=== PATIENT | female | born 1955 | race Caucasian/White ===

== ENCOUNTER → 2016-11-05 | Outpatient (CLI) | payer MEDICAID ==
[2016-11-05 11:56] LABS: PROTHROMBIN TIME 25.3 SEC (11.4-15.4)
== END ==
LOC: OD 10:22
PROVIDERS: ATTEND Nurse Practitioner
DX: Z79.01 Long term (current) use of anticoagulants (principal)
CPT/HCPCS: 36415; 85610

== ENCOUNTER → 2016-11-26 | Outpatient (CLI) | payer MEDICAID ==
[2016-11-26 10:51] LABS: PROTHROMBIN TIME 25.2 SEC (11.4-15.4)
== END ==
LOC: OD 09:39
PROVIDERS: ATTEND Nurse Practitioner
DX: Z79.01 Long term (current) use of anticoagulants (principal)
CPT/HCPCS: 36415; 85610

== ENCOUNTER → 2016-12-24 | Outpatient (CLI) | payer MEDICAID ==
[2016-12-24 10:20] LABS: PROTHROMBIN TIME 27.4 SEC (11.4-15.4)
== END ==
LOC: OD 09:16
PROVIDERS: ATTEND Nurse Practitioner
DX: Z51.81 Encounter for therapeutic drug level monitoring (principal); Z79.01 Long term (current) use of anticoagulants
CPT/HCPCS: 36415; 85610

== ENCOUNTER → 2017-02-24 | Outpatient (CLI) | payer MEDICAID | LOC: WI 09:43 | PROVIDERS: ATTEND Nurse Practitioner | DX: Z12.31 Encounter for screening mammogram for malignant neoplasm of breast (principal) | CPT/HCPCS: 77067; G0202 ==

== ENCOUNTER → 2017-03-03 | Outpatient (CLI) | payer MEDICAID ==
[2017-03-03 11:19] LABS: PROTHROMBIN TIME 24.1 SEC (11.4-15.4)
== END ==
LOC: OD 10:05
PROVIDERS: ATTEND Nurse Practitioner
DX: Z79.01 Long term (current) use of anticoagulants (principal)
CPT/HCPCS: 36415; 85610

== ENCOUNTER → 2017-04-24 | Outpatient (CLI) | payer MEDICAID ==
[2017-04-24 11:21] LABS: PROTHROMBIN TIME 22.3 SEC (11.4-15.4)
== END ==
LOC: OD 09:51
PROVIDERS: ATTEND Nurse Practitioner
DX: Z79.01 Long term (current) use of anticoagulants (principal)
CPT/HCPCS: 36415; 85610

== ENCOUNTER → 2017-05-07 | Outpatient (CLI) | payer MEDICAID | LOC: OD 12:16 | PROVIDERS: ATTEND Nurse Practitioner | DX: Z79.01 Long term (current) use of anticoagulants (principal) | CPT/HCPCS: 36415; 85610 ==

== ENCOUNTER → 2017-05-26 | Outpatient (CLI) | payer MEDICAID ==
[2017-05-26 13:06] LABS: PROTHROMBIN TIME 21.3 SEC (11.4-15.4)
== END ==
LOC: OD 12:05
PROVIDERS: ATTEND Nurse Practitioner
DX: Z79.01 Long term (current) use of anticoagulants (principal)
CPT/HCPCS: 36415; 85610

== ENCOUNTER → 2017-06-08 | Outpatient (CLI) | payer MEDICAID ==
[2017-06-08 15:12] LABS: PROTHROMBIN TIME 30.6 SEC (11.4-15.4)
== END ==
LOC: OD 13:43
PROVIDERS: ATTEND Nurse Practitioner
DX: Z51.81 Encounter for therapeutic drug level monitoring (principal); Z79.01 Long term (current) use of anticoagulants
CPT/HCPCS: 36415; 85610

== ENCOUNTER → 2017-09-25 | Outpatient (CLI) | payer MEDICAID ==
[2017-09-25 12:03] LABS: PROTHROMBIN TIME 26.7 SEC (11.4-15.4)
== END ==
LOC: OD 10:35
PROVIDERS: ATTEND Nurse Practitioner
DX: Z79.01 Long term (current) use of anticoagulants (principal)
CPT/HCPCS: 36415; 85610

== ENCOUNTER → 2017-12-25 | Outpatient (CLI) | payer MEDICAID ==
[2017-12-25 10:59] LABS: INTERNATIONAL RATION (INR) 2.67; PROTHROMBIN TIME 29.8 SEC (11.4-15.4)
== END ==
LOC: OD 09:33
PROVIDERS: ATTEND Nurse Practitioner
DX: Z79.01 Long term (current) use of anticoagulants (principal)
CPT/HCPCS: 36415; 85610

== ENCOUNTER → 2018-04-02 | Outpatient (CLI) | payer MEDICAID ==
[2018-04-02 12:10] LABS: INTERNATIONAL RATION (INR) 1.94; PROTHROMBIN TIME 23.1 SEC (11.4-15.4)
== END ==
LOC: OD 11:15
PROVIDERS: ATTEND Nurse Practitioner Family
DX: Z79.01 Long term (current) use of anticoagulants (principal)
CPT/HCPCS: 36415; 85610

== ENCOUNTER → 2018-04-12 | Outpatient (CLI) | payer MEDICAID ==
[2018-04-12 13:06] LABS: INTERNATIONAL RATION (INR) 1.94; PROTHROMBIN TIME 23.1 SEC (11.4-15.4)
== END ==
LOC: OD 11:50
PROVIDERS: ATTEND Nurse Practitioner Family
DX: Z79.01 Long term (current) use of anticoagulants (principal)
CPT/HCPCS: 36415; 85610

== ENCOUNTER 2018-07-30 19:12 | Inpatient (IN) | payer MEDICAID ==
--- NOTE | 2018-07-30 20:14 | ER Document Report ---
ED Medical Screen (RME) - General Chief Complaint: Abnormal Lab Results Stated Complaint: ABDOMINAL PAIN Time Seen by Provider: 07/30/18 20:06 Notes: 63-year-old female patient on Coumadin for mechanical heart valve. She did routine lab work yesterday and was notified today that the hemoglobin was 7.5 and that she had a urinary tract infection. She was advised to come to the emergency room. Last time she had lab work done was at least 2 years ago so there is nothing recent to compare to. We also do not have copies of lab work so we do not know what her red cell indices were. We will repeat the lab work along with a type and screen. I have greeted and performed a rapid initial assessment of this patient. A comprehensive ED assessment and evaluation of the patient, analysis of test results and completion of the medical decision making process will be conducted by additional ED providers. TRAVEL OUTSIDE OF THE [place] IN LAST 30 DAYS: No - Related Data Allergies/Adverse Reactions: Carbapenems [Carbapenem] Allergy (Unknown, Verified 04/29/12 11:45) Cephalosporins Allergy (Unknown, Verified 04/29/12 11:45) Macrolide Antibiotics Allergy (Unknown, Verified 04/29/12 11:45) NSAIDS (Non-Steroidal Anti-Inflamma [Nsaids] Allergy (Unknown, Verified 11:45) Pyrazoles Allergy (Unknown, Verified 04/29/12 11:45) Salicylates * [Salicylates] Allergy (Unknown, Verified 04/29/12 11:45) Penicillins Allergy (Verified 09/21/12 11:24) Past Medical History - Social History Chew tobacco use (# tins/day): No Frequency of alcohol use: Occasional Drug Abuse: None - Past Medical History Cardiac Medical History: Reports: Hx Hypercholesterolemia, Hx Hypertension Renal/ Medical History: Denies: Hx Peritoneal Dialysis GI Medical History: Reports: Hx Gastroesophageal Reflux Disease Psychiatric Medical History: Reports: Hx Anxiety Past Surgical History: Reports: Hx Cardiac Surgery - mitrial valve replacement, Hx Cholecystectomy, Hx Hysterectomy, Hx Tonsillectomy - Immunizations Hx Diphtheria, Pertussis, Tetanus Vaccination: Yes Physical Exam - Vital signs Vitals: Temp Pulse Resp BP Pulse Ox 98.5 F 111 H 18 132/77 H 99 07/30/18 19:32 07/30/18 19:32 07/30/18 19:32 07/30/18 19:32 07/30/18 19:32 Course - Vital Signs Vital signs: Temp Pulse Resp BP Pulse Ox 98.5 F 111 H 18 132/77 H 99 07/30/18 19:32 07/30/18 19:32 07/30/18 19:32 07/30/18 19:32 07/30/18 19:32 Doctor's Discharge - Discharge Referrals: JOÃO GRIFFIN, [employer] [facility]-C [Primary Care Provider] - Follow up as needed
[2018-07-30 21:24] LABS: RED BLOOD COUNT 2.62 10^6/uL (3.72-5.28); WHITE BLOOD COUNT 5.2 10^3/uL (4.0-10.5)
[2018-07-30 21:25] LABS: ABSOLUTE EOSINOPHILS # (AUTO) 0.1 10^3/uL (0.0-0.6); ABSOLUTE LYMPHOCYTES (AUTO) 1.2 10^3/uL (0.5-4.7); ABSOLUTE MONOCYTES (AUTO) 0.3 10^3/uL (0.1-1.4); ABSOLUTE NEUT (AUTO) 3.6 10^3/uL (1.7-8.2); BASOPHILS % (AUTO) 0.6 % (0-2); EOSINOPHILS % (AUTO) 1.3 % (0-6); HEMATOCRIT 21.3 % (36.0-47.0); LYMPHOCYTES % (AUTO) 22.7 % (13-45); MEAN CORPUSCULAR HEMOGLOBIN 26.5 pg (27.0-33.4); MEAN CORPUSCULAR HGB CONC 32.6 g/dL (32.0-36.0); MEAN CORPUSCULAR VOLUME 81 fl (80-97); MONOCYTES % (AUTO) 6.5 % (3-13); PLATELET COUNT 194 10^3/uL (150-450); SEGMENTED NEUTROPHILS % (AUTO) 68.9 % (42-78); TOTAL CELLS COUNTED % (AUTO) 100 %
[2018-07-30 21:29] LABS: HEMOGLOBIN 6.9 g/dL (12.0-15.5)
[2018-07-30 21:30] LABS: ALANINE AMINOTRANSFERASE 32 U/L (9-52); ALBUMIN 3.6 g/dL (3.5-5.0); ALKALINE PHOSPHATASE 86 U/L (38-126); ANION GAP 5 (5-19); ASPARTATE AMINO TRANSFERASE 34 U/L (14-36); BILIRUBIN,DIRECT 0.3 mg/dL (0.0-0.4); BILIRUBIN,TOTAL 0.3 mg/dL (0.2-1.3); BLOOD UREA NITROGEN 18 mg/dL (7-20); CALCIUM 8.6 mg/dL (8.4-10.2); CARBON DIOXIDE 27 mmol/L (22-30); CHLORIDE 109 mmol/L (98-107); GLUCOSE 109 mg/dL (75-110); SODIUM 141.1 mmol/L (137-145); TOTAL PROTEIN 6.4 g/dL (6.3-8.2)
[2018-07-30 21:31] LABS: APPEARANCE,URINE SLIGHTLY-CLOUDY; BILIRUBIN,URINE NEGATIVE (NEGATIVE); COLOR,URINE YELLOW; GLUCOSE, URINE NEGATIVE (NEGATIVE); KETONES,URINE NEGATIVE (NEGATIVE); LEUKOCYTE ESTERASE,URINE LARGE (NEGATIVE); NITRITE,URINE NEGATIVE (NEGATIVE); PROTEIN,URINE NEGATIVE (NEGATIVE); URINE SPECIFIC GRAVITY 1.023
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
[2018-07-30 21:38] LABS: PROTHROMBIN TIME 36.7 SEC (11.4-15.4)
[2018-07-30] MEDS ORDERED: NORMAL SALINE 250 ML IV PRN ×2 (21:52→23:38)
[2018-07-30] MEDS ORDERED: PANTOPRAZOLE SODIUM 40 MG VIAL IV ONE (23:30)
[2018-07-30] MEDS ORDERED: PANTOPRAZOLE SODIUM 40 MG VIAL IV PRN (23:30)
[2018-07-30] MEDS ORDERED: PHYTONADIONE INJ 10 MG/1 ML AMPULE IV ONE (23:39)
[2018-07-30] MEDS ORDERED: PHYTONADIONE 5 MG TABLET PO ONE (23:41)
[2018-07-30] MEDS ORDERED: PEG 3350/NA SULF,BICARB,CL/KCL 4000 ML PO ONE (23:43)
[2018-07-31] MEDS ORDERED: PROMETHAZINE HCL INJ 25 MG/1 ML VIAL IV PRN (00:06)
[2018-07-31] MEDS ORDERED: PROMETHAZINE HCL 25 MG TABLET PO PRN (00:06)
[2018-07-31] MEDS ORDERED: MAG HYDROX/AL HYDROX/SIMETH SUSP 30 ML UDCUP PO PRN (00:06)
[2018-07-31] MEDS ORDERED: PEG 3350/NA SULF,BICARB,CL/KCL 4000 ML ONE (00:14)
[2018-07-31 00:28] LABS: ABSOLUTE RETICS # 0.093 10^6/uL (0.028-0.122); RETICULOCYTE COUNT (AUTO) 3.47 % (0.66-2.85)
--- NOTE | 2018-07-31 00:36 | PDOC H&P ---
History of Present Illness Admission Date/PCP: 07/30/18 23:57 CIRILO STEPHENS Patient complains of: Sent by PCP for severe anemia History of Present Illness: CORDELIA DAVID is a 63 year old female who comes to the emergency department sent by her primary care provider after routine labs were done and patient was found with severe anemia. In the emergency department hemoglobin 6.9. Patient has a mechanical valve and is on Coumadin, her INR is 3.5. Patient denies having any hematemesis, hematochezia, maroon stools or melena. Denies dizziness , lightheadedness, chest tightness, palpitations, patient has COPD and tells me that he has chronic shortness of breath and wheezing that has not changed. Never had a colonoscopy, tells me she did not know she did not needs to have it done. Protonix 80 IV mg given. Past Medical History Cardiac Medical History: Reports: Hyperlipidema Pulmonary Medical History: Reports: Chronic Obstructive Pulmonary Disease (COPD) GI Medical History: Reports: Gastroesophageal Reflux Disease Hematology: Reports: Anemia Past Surgical History Past Surgical History: Reports: Cholecystectomy, Hysterectomy, Tonsillectomy, Valve Replacement - Mechanical valve placement Social History Smoking Status: Current Every Day Smoker - Went down from 2 packs/day to 5 cigarettes a day Frequency of Alcohol Use: None - Used to be heavy drinker more than 20 years ago Hx Recreational Drug Use: No Hx Prescription Drug Abuse: No Family History Family History: None Family History: Patient has been adopted by her aunt, her mother has history of massive [place], she does not know at what age she . She does not know anything about her father. Her aunt has history of kidney disease Parental Family History Reviewed: Yes - As above Children Family History Reviewed: NA Sibling(s) Family History Reviewed.: NA Medication/Allergy Home Medications: Diazepam [Valium 5 Mg Tablet] 5 mg PO TID 04/29/12 Digoxin [Lanoxin 0.125 Mg Tablet] 0.125 mg PO DAILY 04/29/12 Hydrocodone Bit/Acetaminophen [[place] 5-325 Tablet] 1 each PO PRN PRN 04/29/12 Omeprazole [Prilosec 20 mg Capsule] 20 mg PO BID 04/29/12 Pnv W-O Ca No5/Fe Fumarate/FA [-U Capsule] 1 cap PO DAILY 04/29/12 Simvastatin [Zocor 40 mg Tablet] 40 mg PO QHS 04/29/12 Solifenacin Succinate [Vesicare] 10 mg PO DAILY 04/29/12 Warfarin Sodium [Coumadin 2.5 Mg Tablet] 5 mg PO DAILY 04/29/12 Amoxicillin/Potassium Clav [Amox Tr-K Clv 875-125 mg Tab] 1 each PO Q12H Fenofibrate Nanocrystallized [Tricor 145 Mg Tablet] 145 mg PO DAILY 09/21/12 Methylprednisolone [Medrol 4 mg Dosepack 21 Tab/Pack] 4 mg PO ASDIR PRN Hydrocodone/Acetaminophen [[place] 5-325 Tablet] 1 each PO QID #15 tablet Ondansetron [Zofran Odt 4 mg Tablet] 1 - 2 tab PO Q4H #10 tab.rapdis 09/27/16 Allergies/Adverse Reactions: Carbapenems [Carbapenem] Allergy (Unknown, Verified 04/29/12 11:45) Cephalosporins Allergy (Unknown, Verified 04/29/12 11:45) Macrolide Antibiotics Allergy (Unknown, Verified 04/29/12 11:45) NSAIDS (Non-Steroidal Anti-Inflamma [Nsaids] Allergy (Unknown, Verified 11:45) Pyrazoles Allergy (Unknown, Verified 04/29/12 11:45) Salicylates * [Salicylates] Allergy (Unknown, Verified 04/29/12 11:45) Penicillins Allergy (Verified 09/21/12 11:24) Review of Systems Review of Systems: As outlined above, others negative Physical Exam Vital Signs: Temp Pulse Resp BP Pulse Ox 98.4 F 111 H 24 H 149/92 H 99 07/31/18 00:15 07/30/18 19:32 07/31/18 00:00 07/30/18 23:13 07/31/18 00:00 Additional comments: General appearance: Well-developed, well-nourished, alert and cooperative, and appears to be in no acute distress Head: Normocephalic Eyes: PEERL, EOMI, vision is grossly intact. Ears: External auditory canal and tympanic membranes clear, hearing grossly intact. Nose: No nasal discharge. Throat: Oral cavity and pharynx normal. No inflammation, swelling, exudate or lesions. Neck: Neck supple, nontender without lymphadenopathy, masses or thyromegaly. Cardiac: Normal S1 and S2. No S3, S4 or murmurs. Rhythm is regular. There is no peripheral edema, cyanosis or pallor. Extremities are warm and well perfused. Capillary refill is less than 2 seconds. No carotid bruits. Lungs: Clear to auscultation and percussion without rales, rhonchi, wheezing or diminished breath sounds. Not using accessory muscles. Abdomen: Positive bowel sounds. Soft. Nondistended, mild epigastric tenderness. No guarding or rebound. No masses. No hepatosplenomegaly Extremities: No significant deformity or joint abnormality. No edema. Peripheral pulses intact. No varicosities. Neurological: Cranial nerves II through XII grossly intact. Strength and sensation symmetric and intact throughout. Reflexes 2+ throughout. Skin: Skin normal color, texture and turgor with no lesions or eruptions, warm and dry. Psychiatric: The mental examination revealed the patient was oriented to person , place, and time. The patient was able to demonstrate good judgment on recent , without hallucinations, abnormal affect or abnormal behaviors. Results Laboratory Results: 07/30/18 07/30/18 07/30/18 20:55 20:55 20:55 WBC 5.2 RBC 2.62 L Hgb 6.9 L Hct 21.3 L MCV 81 MCH 26.5 L MCHC 32.6 RDW 17.0 H Plt Count 194 Seg Neutrophils % 68.9 Lymphocytes % 22.7 Monocytes % 6.5 Eosinophils % 1.3 Basophils % 0.6 Absolute Neutrophils 3.6 Absolute Lymphocytes 1.2 Absolute Monocytes 0.3 Absolute Eosinophils 0.1 Absolute Basophils 0.0 Retic Count (auto) PT 36.7 H INR 3.50 Sodium 141.1 Potassium 4.0 Chloride 109 H Carbon Dioxide 27 Anion Gap 5 BUN 18 Creatinine 0.95 Est GFR ( Amer) > 60 Est GFR (Non-Af Amer) > 60 Glucose 109 Calcium 8.6 Total Bilirubin 0.3 Direct Bilirubin 0.3 AST 34 ALT 32 Alkaline Phosphatase 86 Total Protein 6.4 Albumin 3.6 Urine Color Urine Appearance Urine pH Ur Specific [place] Urine Protein Urine Glucose (UA) Urine Ketones Urine Blood Urine Nitrite Urine Bilirubin Urine Urobilinogen Ur Leukocyte Esterase Urine WBC (Auto) Urine RBC (Auto) U Hyaline Cast (Auto) Urine Bacteria (Auto) Squamous Epi Cells Auto Urine Mucus (Auto) Urine Ascorbic Acid Stool Occult Blood 07/30/18 07/30/18 07/30/18 20:55 21:09 21:40 WBC RBC Hgb Hct MCV MCH MCHC RDW Plt Count Seg Neutrophils % Lymphocytes % Monocytes % Eosinophils % Basophils % Absolute Neutrophils Absolute Lymphocytes Absolute Monocytes Absolute Eosinophils Absolute Basophils Retic Count (auto) Pending PT INR Sodium Potassium Chloride Carbon Dioxide Anion Gap BUN Creatinine Est GFR ( Amer) Est GFR (Non-Af Amer) Glucose Calcium Total Bilirubin Direct Bilirubin AST ALT Alkaline Phosphatase Total Protein Albumin Urine Color YELLOW Urine Appearance SLIGHTLY-CLOUDY Urine pH 5.0 Ur Specific [place] 1.023 Urine Protein NEGATIVE Urine Glucose (UA) NEGATIVE Urine Ketones NEGATIVE Urine Blood NEGATIVE Urine Nitrite NEGATIVE Urine Bilirubin NEGATIVE Urine Urobilinogen 2.0 H Ur Leukocyte Esterase LARGE H Urine WBC (Auto) 15 Urine RBC (Auto) 5 U Hyaline Cast (Auto) 4 Urine Bacteria (Auto) TRACE Squamous Epi Cells Auto 3 Urine Mucus (Auto) FEW Urine Ascorbic Acid NEGATIVE Stool Occult Blood POSITIVE Assessment & Plan - Diagnosis (1) Severe anemia Is this a current diagnosis for this admission?: Yes Plan: Patient comes with hemoglobin of 6.9, patient is asymptomatic, patient does not have any active bleeding and she did not notice any of active bleeding in the past. Occult blood in the stools positive. Patient is on Coumadin with INR 3.5 for her mechanical valve, probably this is causing microscopic bleeding. Never had a colonoscopy. I am not sure if the patient will have colonoscopy/ EGD as inpatient, and placing a consult for Dr. hammer from the general surgery department. Until decision be made, I will continue with her Coumadin as in the case she needs her Coumadin to be held with low INR she has to be transitioned to IV heparin. Coumadin can be hold as soon as scope is a schedule. Anemia workup sent. Seems to be more chronic anemia, patient has not had any labs in 2 years. IV Protonix. 2 units of PRBC ordered in the ED, CBC to be repeated in the morning. (2) GERD (gastroesophageal reflux disease) Is this a current diagnosis for this admission?: Yes Plan: Patient is usually on omeprazole at home, here on IV Protonix. (3) Mechanical heart valve present Is this a current diagnosis for this admission?: Yes Plan: Continue with Coumadin, INR required 2.5/3.5. Currently INR 2.5, to be repeated in the morning. Medication reconciliation has not been done yet. (4) Tobacco user Is this a current diagnosis for this admission?: Yes Plan: Counseling given, nicotine patch 14 mg a day. - Time Time Spent: 30 to 50 Minutes - Inpatient Certification Based on my medical assessment, after consideration of the patient's comorbidities, presenting symptoms, or acuity I expect that the services needed warrant INPATIENT care.: Yes I certify that my determination is in accordance with my understanding of Medicare's requirements for reasonable and necessary INPATIENT services [42 CFR 412.3e].: Yes Medical Necessity: Risk of Complication if Not Cared For in Hospital
[2018-07-31 00:37] LABS: IRON(TIBC) 14.4 ug/dL (37-170)
[2018-07-31 01:46] LABS: FOLATE > 20.00 ng/mL (>2.76)
[2018-07-31] MEDS: IPRATROPIUM/ALBUTEROL 0.5-2.5 MG/3 ML AMPUL NEB PRN ×2 (08:53→20:39)
[2018-07-31] MEDS: PANTOPRAZOLE SODIUM 40 MG VIAL IV SCH ×2 (09:28→21:16)
[2018-07-31] MEDS ORDERED: DIGOXIN 0.125 MG TABLET PO SCH (10:00)
[2018-07-31] MEDS ORDERED: (PENDING PHARMACY ID) (Solifenacin Succinate [Vesicare] 10 MG) PO SCH (10:00)
[2018-07-31 11:09] LABS: ABSOLUTE EOSINOPHILS # (AUTO) 0.1 10^3/uL (0.0-0.6); ABSOLUTE MONOCYTES (AUTO) 0.3 10^3/uL (0.1-1.4); ABSOLUTE NEUT (AUTO) 4.7 10^3/uL (1.7-8.2); BASOPHILS % (AUTO) 0.6 % (0-2); EOSINOPHILS % (AUTO) 1.5 % (0-6); HEMATOCRIT 28.1 % (36.0-47.0); LYMPHOCYTES % (AUTO) 16.1 % (13-45); MEAN CORPUSCULAR HEMOGLOBIN 26.6 pg (27.0-33.4); MEAN CORPUSCULAR HGB CONC 33.7 g/dL (32.0-36.0); MEAN CORPUSCULAR VOLUME 79 fl (80-97); MONOCYTES % (AUTO) 4.7 % (3-13); PLATELET COUNT 162 10^3/uL (150-450); RED BLOOD COUNT 3.55 10^6/uL (3.72-5.28); RED CELL DISTRIBUTION WIDTH 16.9 % (11.5-14.0); SEGMENTED NEUTROPHILS % (AUTO) 77.1 % (42-78); TOTAL CELLS COUNTED % (AUTO) 100 %; WHITE BLOOD COUNT 6.1 10^3/uL (4.0-10.5)
[2018-07-31 11:12] LABS: HEMOGLOBIN 9.5 g/dL (12.0-15.5)
[2018-07-31] MEDS: FENOFIBRATE NANOCRYSTALLIZED 145 MG TABLET PO SCH (11:15)
[2018-07-31] MEDS ORDERED: FERRIC CARBOXYMALTOSE INJ 750 MG/15 ML VIAL IV SCH (11:30)
[2018-07-31] MEDS ORDERED: FERRIC CARBOXYMALTOSE 750 MG in NORMAL SALINE 250 ML IV ONE (13:00)
[2018-07-31] MEDS: ACETAMINOPHEN 325 MG TABLET PO PRN ×2 (13:59→23:25)
[2018-07-31] MEDS ORDERED: DIAZEPAM 5 MG TABLET PO SCH (14:00)
--- NOTE | 2018-07-31 15:38 | PDOC CONSULTATION ---
Consultation Consult Date: 07/31/18 Consult reason:: Anemia, rule out GI source History of Present Illness Admission Date/PCP: 07/30/18 23:57 CIRILO STEPHENS Patient complains of: Weakness, anemia History of Present Illness: CORDELIA DAVID is a 63 year old female seen at the request of the hospitalist service. The patient was admitted with weakness and severe anemia. This is been ongoing for the last several weeks. The patient underwent packed red blood cell transfusion. I was consulted to rule out a GI source of her blood loss. Currently the patient is on therapeutic anticoagulation for a mechanical mitral valve. She reports weakness and fatigue. She also reports severe shortness of breath. Her symptoms are worse with activity. She denies chest pain, abdominal pain, nausea, vomiting, melena, hematochezia, hematemesis, blurry vision, fevers, chills, hematuria. She has never had a colonoscopy. Past Medical History Cardiac Medical History: Reports: Hyperlipidema, Hypertension Pulmonary Medical History: Reports: Chronic Obstructive Pulmonary Disease (COPD) GI Medical History: Reports: Gastroesophageal Reflux Disease Hematology: Reports: Anemia Past Surgical History Past Surgical History: Reports: Cholecystectomy, Hysterectomy, Tonsillectomy, Valve Replacement - Mechanical valve placement Social History Smoking Status: Current Every Day Smoker Cigarettes Packs Per Day: 0.5 Frequency of Alcohol Use: None Hx Recreational Drug Use: No Hx Prescription Drug Abuse: No - Advance Directive Resuscitation Status: Full Code Family History Family History: None Parental Family History Reviewed: Yes Children Family History Reviewed: Yes Sibling(s) Family History Reviewed.: Yes Medication/Allergy Home Medications: Omeprazole 20 mg PO BID 07/31/18 Vit/Dha [ Multi + Dha Capsule] 1 cap PO DAILY 07/31/18 Warfarin Sodium [Coumadin 2.5 mg Tablet] 7.5 mg PO MOWEFR@1000 07/31/18 Allergies/Adverse Reactions: Carbapenems [Carbapenem] Allergy (Unknown, Verified 04/29/12 11:45) Cephalosporins Allergy (Unknown, Verified 04/29/12 11:45) Macrolide Antibiotics Allergy (Unknown, Verified 04/29/12 11:45) NSAIDS (Non-Steroidal Anti-Inflamma [Nsaids] Allergy (Unknown, Verified 11:45) Pyrazoles Allergy (Unknown, Verified 07/05/12 11:45) Salicylates * [Salicylates] Allergy (Unknown, Verified 04/29/12 11:45) Penicillins Allergy (Verified 09/21/12 11:24) Review of Systems Constitutional: PRESENT: fatigue, weakness. ABSENT: chills, fever(s), headache( s) Eyes: ABSENT: visual disturbances Ears: ABSENT: hearing changes Nose, Mouth, and Throat: ABSENT: sore throat Cardiovascular: ABSENT: chest pain Respiratory: PRESENT: dyspnea. ABSENT: cough Gastrointestinal: ABSENT: abdominal pain, hematemesis, hematochezia, melena, nausea, vomiting Genitourinary: ABSENT: hematuria Musculoskeletal: PRESENT: back pain Integumentary: ABSENT: pruritus, rash Neurological: ABSENT: abnormal speech, confusion, convulsions Psychiatric: ABSENT: anxiety, depression Endocrine: ABSENT: cold intolerance, heat intolerance Hematologic/Lymphatic: PRESENT: easy bleeding, easy bruising Physical Exam Vital Signs: Temp Pulse Resp BP Pulse Ox 98.2 F 94 24 H 145/84 H 96 07/31/18 13:00 07/31/18 13:00 07/31/18 13:00 07/31/18 13:00 07/31/18 13:00 Intake & Output 07/30/18 07/31/18 08/01/18 06:59 06:59 06:59 Intake Total 350 565 Balance 350 565 Weight 51.1 kg General appearance: PRESENT: no acute distress Head exam: PRESENT: atraumatic, normocephalic Eye exam: PRESENT: EOMI, PERRLA. ABSENT: scleral icterus Mouth exam: ABSENT: neck supple Neck exam: ABSENT: meningismus, tenderness, thyromegaly, tracheal deviation Respiratory exam: PRESENT: crackles, tachypnea. ABSENT: chest wall tenderness, wheezes Cardiovascular exam: PRESENT: clicks - Mechanical heart valve, RRR Pulses: PRESENT: normal radial pulses Vascular exam: PRESENT: pallor GI/Abdominal exam: PRESENT: soft. ABSENT: distended, tenderness Rectal exam: PRESENT: deferred Musculoskeletal exam: ABSENT: deformity Neurological exam: PRESENT: alert, awake, oriented to person, oriented to place , oriented to time, oriented to situation Psychiatric exam: ABSENT: agitated, anxious, depressed Focused psych exam: ABSENT: delusional Skin exam: ABSENT: cyanosis, erythema, jaundice Results Laboratory Results: 07/31/18 10:30 07/31/18 10:30 WBC 6.1 RBC 3.55 L Hgb 9.5 L D Hct 28.1 L MCV 79 L MCH 26.6 L MCHC 33.7 RDW 16.9 H Plt Count 162 Seg Neutrophils % 77.1 Lymphocytes % 16.1 Monocytes % 4.7 Eosinophils % 1.5 Basophils % 0.6 Absolute Neutrophils 4.7 Absolute Lymphocytes 1.0 Absolute Monocytes 0.3 Absolute Eosinophils 0.1 Absolute Basophils 0.0 Assessment & Plan - Diagnosis (1) Anemia Qualifiers: Anemia type: other cause Other causes of anemia: other cause, not classified Qualified Code(s): D64.89 - Other specified anemias Is this a current diagnosis for this admission?: Yes - Plan Summary Plan Summary: This is a 63-year-old female with severe anemia of unknown origin. The patient has never had upper or lower endoscopy. I have been consulted for evaluation for EGD and colonoscopy. Unfortunately, this patient is somewhat complicated. Her mechanical heart valve requires cessation of Coumadin, and concurrent administration of intravenous heparin. I discussed this at length with the medical team. I will plan for a bowel prep Thursday night and (if everything is in order) upper and lower endoscopy on Thursday. Will follow.
[2018-07-31] MEDS ORDERED: BISACODYL 5 MG TABEC PO ONE (16:30)
[2018-07-31 18:45] LABS: ABSOLUTE EOSINOPHILS # (AUTO) 0.1 10^3/uL (0.0-0.6); ABSOLUTE LYMPHOCYTES (AUTO) 1.1 10^3/uL (0.5-4.7); ABSOLUTE MONOCYTES (AUTO) 0.3 10^3/uL (0.1-1.4); ABSOLUTE NEUT (AUTO) 4.5 10^3/uL (1.7-8.2); BASOPHILS % (AUTO) 0.5 % (0-2); EOSINOPHILS % (AUTO) 1.6 % (0-6); HEMATOCRIT 28.4 % (36.0-47.0); HEMOGLOBIN 9.5 g/dL (12.0-15.5); LYMPHOCYTES % (AUTO) 18.3 % (13-45); MEAN CORPUSCULAR HEMOGLOBIN 27.1 pg (27.0-33.4); MEAN CORPUSCULAR HGB CONC 33.4 g/dL (32.0-36.0); MEAN CORPUSCULAR VOLUME 81 fl (80-97); MONOCYTES % (AUTO) 5.1 % (3-13); PLATELET COUNT 172 10^3/uL (150-450); RED CELL DISTRIBUTION WIDTH 17.1 % (11.5-14.0); SEGMENTED NEUTROPHILS % (AUTO) 74.5 % (42-78); TOTAL CELLS COUNTED % (AUTO) 100 %; WHITE BLOOD COUNT 6.1 10^3/uL (4.0-10.5)
[2018-07-31 18:46] LABS: INTERNATIONAL RATION (INR) 1.66; PROTHROMBIN TIME 20.4 SEC (11.4-15.4)
[2018-07-31 18:47] LABS: PARTIAL THROMBOPLASTIN TIME 32.7 SEC (23.5-35.8)
[2018-07-31] MEDS ORDERED: HEPARIN SOD (PORCINE) 1,000 UNIT/ML 10 ML VIAL IV PRN (19:13)
[2018-07-31] MEDS: HEPARIN SODIUM,PORCINE/D5W 25,000 UNIT/250 ML RTUINJ IV PRN (20:06)
[2018-07-31] MEDS: SIMVASTATIN 40 MG TABLET PO SCH (21:16)
[2018-07-31] MEDS: BISACODYL 5 MG TABEC PO SCH (21:16)
[2018-07-31] MEDS ORDERED: SULFAMETHOXAZOLE/TRIMETHOPRIM 800-160 MG TABLET ONE (21:40)
[2018-07-31] MEDS ORDERED: SULFAMETHOXAZOLE/TRIMETHOPRIM 800-160 MG/20 ML UDCUP PO SCH (22:00)
[2018-07-31] MEDS: SULFAMETHOXAZOLE/TRIMETHOPRIM 800-160 MG TABLET PO SCH (22:02)
[2018-08-01 02:32] LABS: HEMATOCRIT 28.8 % (36.0-47.0); HEMOGLOBIN 9.8 g/dL (12.0-15.5); MEAN CORPUSCULAR HEMOGLOBIN 27.1 pg (27.0-33.4); MEAN CORPUSCULAR HGB CONC 33.8 g/dL (32.0-36.0); MEAN CORPUSCULAR VOLUME 80 fl (80-97); PLATELET COUNT 162 10^3/uL (150-450); RED CELL DISTRIBUTION WIDTH 16.9 % (11.5-14.0); WHITE BLOOD COUNT 6.7 10^3/uL (4.0-10.5)
[2018-08-01 03:04] LABS: INTERNATIONAL RATION (INR) 1.29; PROTHROMBIN TIME 16.8 SEC (11.4-15.4)
[2018-08-01] MEDS ORDERED: DEXTROSE 40% GEL 15 GM TUBE PO PRN ×2 (07:15)
[2018-08-01] MEDS ORDERED: DEXTROSE 50%-WATER 25 GM/50 ML DISP.SYRIN IV PRN ×2 (07:15)
[2018-08-01] MEDS ORDERED: GLUCAGON,HUMAN RECOMB 1 MG INJ SUBCUT PRN (07:15)
--- NOTE | 2018-08-01 08:52 | PDOC PROGRESS REPORT ---
Subjective Progress Note for:: 08/01/18 Subjective:: CORDELIA DAVID is a 63 year old female past medical history of rheumatic heart disease status post valve replacement in the 90s, who comes to the emergency department sent by her primary care provider after routine labs were done and patient was found with severe anemia. In the emergency department hemoglobin 6.9. Patient has a mechanical valve and is on Coumadin, her INR is 3.5. Patient denies having any hematemesis, hematochezia, maroon stools or melena. Denies dizziness, lightheadedness, chest tightness, palpitations, patient has COPD and tells me that he has chronic shortness of breath and wheezing that has not changed. Never had a colonoscopy, tells me she did not know she did not needs to have it done. Protonix 80 IV mg given. 08/01/2018. No acute events overnight, patient is very pleasant and cooperative with physical examination and history taking. He is stating that she was able to have a very good night sleep. Denies any melena, hematochezia, hemoptysis, hematemesis. Currently on insulin drip waiting for endoscopy and possible colonoscopy tomorrow. She denies any nausea, vomiting, diarrhea, constipation, urinary system, shortness of breath, fever, chest pain or any palpitations. Reason For Visit: SEVERE ANEMIA Physical Exam Vital Signs: Temp Pulse Resp BP Pulse Ox 98.0 F 71 20 143/78 H 96 08/01/18 07:55 08/01/18 07:55 08/01/18 07:55 08/01/18 07:55 08/01/18 07:55 Intake & Output 07/31/18 08/01/18 08/02/18 06:59 06:59 06:59 Intake Total 350 1654 Balance 350 1654 Weight 51.1 kg General appearance: PRESENT: no acute distress, well-developed, well-nourished Head exam: PRESENT: atraumatic, normocephalic Eye exam: PRESENT: conjunctiva pink, EOMI, PERRLA. ABSENT: scleral icterus Ear exam: PRESENT: normal external ear exam Mouth exam: PRESENT: moist, tongue midline Neck exam: ABSENT: carotid bruit, JVD, lymphadenopathy, thyromegaly Respiratory exam: PRESENT: clear to auscultation marty. ABSENT: rales, rhonchi, wheezes Cardiovascular exam: PRESENT: RRR. ABSENT: diastolic murmur, rubs, systolic murmur Pulses: PRESENT: normal dorsalis pedis pul Vascular exam: PRESENT: normal capillary refill GI/Abdominal exam: PRESENT: normal bowel sounds, soft. ABSENT: distended, guarding, mass, organolmegaly, rebound, tenderness Rectal exam: PRESENT: deferred Extremities exam: PRESENT: full ROM. ABSENT: calf tenderness, clubbing, pedal edema Neurological exam: PRESENT: alert, awake, oriented to person, oriented to place , oriented to time, oriented to situation, CN II-XII grossly intact. ABSENT: motor sensory deficit Psychiatric exam: PRESENT: appropriate affect, normal mood. ABSENT: homicidal ideation, suicidal ideation Skin exam: PRESENT: dry, intact, warm. ABSENT: cyanosis, rash Results Laboratory Results: 08/01/18 02:20 07/31/18 07/31/18 08/01/18 10:30 17:40 02:20 WBC 6.1 6.1 6.7 RBC 3.55 L 3.50 L 3.60 L Hgb 9.5 L D 9.5 L 9.8 L Hct 28.1 L 28.4 L 28.8 L MCV 79 L 81 80 MCH 26.6 L 27.1 27.1 MCHC 33.7 33.4 33.8 RDW 16.9 H 17.1 H 16.9 H Plt Count 162 172 162 Seg Neutrophils % 77.1 74.5 Lymphocytes % 16.1 18.3 Monocytes % 4.7 5.1 Eosinophils % 1.5 1.6 Basophils % 0.6 0.5 Absolute Neutrophils 4.7 4.5 Absolute Lymphocytes 1.0 1.1 Absolute Monocytes 0.3 0.3 Absolute Eosinophils 0.1 0.1 Absolute Basophils 0.0 0.0 Assessment & Plan - Diagnosis (1) Severe anemia Is this a current diagnosis for this admission?: Yes Plan: Likely a combination of GI bleed and 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 Iron panel is positive for iron deficiency anemia. Status post 2 PRBC on admission. Received 1 dose of Injectafer and placed on ferrous sulfate twice daily. Denies any melena, hematochezia, hematemesis, hemoptysis or any vaginal bleeding. H&H has been stable. CMP tomorrow. (2) Mechanical heart valve present Is this a current diagnosis for this admission?: Yes Plan: Mechanical heart valve placed due to complication of rheumatic heart disease in the 90s. Patient is on chronic Coumadin. INR admission was 3.5. Currently switch to heparin drip as she is planned for a upper GI endoscopy and colonoscopy. Will restart Coumadin post procedure with a goal INR of 2.5-3.5 (3) GERD (gastroesophageal reflux disease) Is this a current diagnosis for this admission?: Yes Plan: Continue PPIs. Patient is scheduled for upper GI endoscopy for bleeding. Hopefully she can be evaluated for complication of chronic GERD. (4) GI bleed Qualifiers: GI bleed type/associated pathology: unspecified gastrointestinal hemorrhage type Qualified Code(s): K92.2 - Gastrointestinal hemorrhage, unspecified Is this a current diagnosis for this admission?: Yes Plan: Severe anemia positive Hemoccult. Scheduled for upper GI endoscopy and colonoscopy tomorrow. Will start GoLYTELY this evening. (5) Tobacco user Is this a current diagnosis for this admission?: Yes Plan: Advised and encouraged to quit smoking. (6) UTI (urinary tract infection) Is this a current diagnosis for this admission?: Yes Plan: Uncomplicated, likely due to E. coli. Continue Bactrim. Patient is allergic to ,cephalosporins, macrolides, cephalosporins and penicillins.
[2018-08-01] MEDS: BISACODYL 5 MG TABEC PO SCH ×2 (09:38→17:33)
[2018-08-01] MEDS: PANTOPRAZOLE SODIUM 40 MG VIAL IV SCH ×2 (09:38→21:50)
[2018-08-01] MEDS: FENOFIBRATE NANOCRYSTALLIZED 145 MG TABLET PO SCH (09:38)
[2018-08-01] MEDS: SULFAMETHOXAZOLE/TRIMETHOPRIM 800-160 MG TABLET PO SCH ×2 (09:38→21:51)
[2018-08-01] MEDS: FERROUS SULFATE 325 MG TABLET PO SCH (09:38)
[2018-08-01] MEDS ORDERED: NYSTATIN CREAM 15 GM TP SCH (12:00)
[2018-08-01] MEDS ORDERED: POLYETHYLENE GLYCOL 3350 POWDER 17 GM/1 PACKET PO ONE ×2 (12:00→13:00)
--- NOTE | 2018-08-01 18:46 | PDOC PROGRESS REPORT ---
Subjective Progress Note for:: 08/01/18 Subjective:: Comfortable Reason For Visit: SEVERE ANEMIA Physical Exam Vital Signs: Temp Pulse Resp BP Pulse Ox 98.2 F 73 12 141/74 H 100 08/01/18 16:58 08/01/18 16:58 08/01/18 16:58 08/01/18 16:58 08/01/18 16:58 Intake & Output 07/31/18 08/01/18 08/02/18 06:59 06:59 06:59 Intake Total 350 1654 950 Balance 350 1654 950 Weight 51.1 kg Exam: abd is soft and non tender Results Laboratory Results: 08/01/18 02:20 07/31/18 08/01/18 17:40 02:20 WBC 6.1 6.7 RBC 3.50 L 3.60 L Hgb 9.5 L 9.8 L Hct 28.4 L 28.8 L MCV 81 80 MCH 27.1 27.1 MCHC 33.4 33.8 RDW 17.1 H 16.9 H Plt Count 172 162 Seg Neutrophils % 74.5 Lymphocytes % 18.3 Monocytes % 5.1 Eosinophils % 1.6 Basophils % 0.5 Absolute Neutrophils 4.5 Absolute Lymphocytes 1.1 Absolute Monocytes 0.3 Absolute Eosinophils 0.1 Absolute Basophils 0.0 Assessment & Plan - Time Time Spent with patient: 15-24 minutes - Plan Summary Plan Summary: INR/PT almost normal.. She is on IV Heparin Heparin can be stopped 2-3 hrs prior to endoscopy For possible EGD/colonoscopy tomorrow by Dr Dos Santos
[2018-08-01] MEDS: SIMVASTATIN 40 MG TABLET PO SCH (21:52)
[2018-08-02] MEDS: HEPARIN SODIUM,PORCINE/D5W 25,000 UNIT/250 ML RTUINJ IV PRN (04:30)
[2018-08-02 06:38] LABS: ABSOLUTE EOSINOPHILS # (AUTO) 0.1 10^3/uL (0.0-0.6); ABSOLUTE LYMPHOCYTES (AUTO) 0.9 10^3/uL (0.5-4.7); ABSOLUTE MONOCYTES (AUTO) 0.4 10^3/uL (0.1-1.4); ABSOLUTE NEUT (AUTO) 4.3 10^3/uL (1.7-8.2); BASOPHILS % (AUTO) 0.5 % (0-2); EOSINOPHILS % (AUTO) 1.9 % (0-6); HEMATOCRIT 29.8 % (36.0-47.0); LYMPHOCYTES % (AUTO) 15.9 % (13-45); MEAN CORPUSCULAR HEMOGLOBIN 26.9 pg (27.0-33.4); MEAN CORPUSCULAR HGB CONC 33.6 g/dL (32.0-36.0); MEAN CORPUSCULAR VOLUME 80 fl (80-97); MONOCYTES % (AUTO) 6.3 % (3-13); PLATELET COUNT 166 10^3/uL (150-450); RED BLOOD COUNT 3.72 10^6/uL (3.72-5.28); RED CELL DISTRIBUTION WIDTH 16.7 % (11.5-14.0); SEGMENTED NEUTROPHILS % (AUTO) 75.4 % (42-78); TOTAL CELLS COUNTED % (AUTO) 100 %; WHITE BLOOD COUNT 5.7 10^3/uL (4.0-10.5)
[2018-08-02 07:23] LABS: ALANINE AMINOTRANSFERASE 30 U/L (9-52); ALBUMIN 3.6 g/dL (3.5-5.0); ALKALINE PHOSPHATASE 96 U/L (38-126); ANION GAP 9 (5-19); ASPARTATE AMINO TRANSFERASE 38 U/L (14-36); BILIRUBIN,DIRECT 0.3 mg/dL (0.0-0.4); BILIRUBIN,TOTAL 0.7 mg/dL (0.2-1.3); BLOOD UREA NITROGEN 8 mg/dL (7-20); CALCIUM 9.1 mg/dL (8.4-10.2); CARBON DIOXIDE 22 mmol/L (22-30); CHLORIDE 109 mmol/L (98-107); GLUCOSE 89 mg/dL (75-110); POTASSIUM 3.7 mmol/L (3.6-5.0); SODIUM 140.2 mmol/L (137-145); TOTAL PROTEIN 6.5 g/dL (6.3-8.2)
--- NOTE | 2018-08-02 08:27 | PDOC PROGRESS REPORT ---
Subjective Progress Note for:: 08/02/18 Subjective:: CORDELIA DAVID is a 63 year old female past medical history of rheumatic heart disease status post valve replacement in the 90s, who comes to the emergency department sent by her primary care provider after routine labs were done and patient was found with severe anemia. In the emergency department hemoglobin 6.9. Patient has a mechanical valve and is on Coumadin, her INR is 3.5. Patient denies having any hematemesis, hematochezia, maroon stools or melena. Denies dizziness, lightheadedness, chest tightness, palpitations, patient has COPD and tells me that he has chronic shortness of breath and wheezing that has not changed. Never had a colonoscopy, tells me she did not know she did not needs to have it done. Protonix 80 IV mg given. 08/01/2018. No acute events overnight, patient is very pleasant and cooperative with physical examination and history taking. He is stating that she was able to have a very good night sleep. Denies any melena, hematochezia, hemoptysis, hematemesis. Currently on insulin drip waiting for endoscopy and possible colonoscopy tomorrow. She denies any nausea, vomiting, diarrhea, constipation, urinary system, shortness of breath, fever, chest pain or any palpitations. 08/02/2018. No acute events overnight. Patient is very pleasant and cooperative sitting on her bed. Cooperating with physical examination. Patient has been n.p.o. and taking her GoLYTELY overnight for endoscopy and colonoscopy today. Patient denies any melena, hematochezia, hemoptysis, hematemesis or any other external sources of bleeding. She has been taking her medications, no complications. She denies fever, chills, nausea, vomiting, chest pain, shortness of breath, diarrhea, constipation, or any urinary symptoms. Reason For Visit: SEVERE ANEMIA Physical Exam Vital Signs: Temp Pulse Resp BP Pulse Ox 98.3 F 71 15 131/65 H 96 08/02/18 03:36 08/02/18 07:00 08/02/18 03:36 08/02/18 03:36 08/02/18 03:36 Intake & Output 08/01/18 08/02/18 08/03/18 06:59 06:59 06:59 Intake Total 1654 1157 Output Total 4 Balance 1654 1153 Weight 51.2 kg General appearance: PRESENT: no acute distress, well-developed, well-nourished Head exam: PRESENT: atraumatic, normocephalic Eye exam: PRESENT: conjunctiva pink, EOMI, PERRLA. ABSENT: scleral icterus Ear exam: PRESENT: normal external ear exam Mouth exam: PRESENT: moist, tongue midline Neck exam: ABSENT: carotid bruit, JVD, lymphadenopathy, thyromegaly Respiratory exam: PRESENT: clear to auscultation marty. ABSENT: rales, rhonchi, wheezes Cardiovascular exam: PRESENT: RRR. ABSENT: diastolic murmur, rubs, systolic murmur Pulses: PRESENT: normal dorsalis pedis pul Vascular exam: PRESENT: normal capillary refill GI/Abdominal exam: PRESENT: normal bowel sounds, soft. ABSENT: distended, guarding, mass, organolmegaly, rebound, tenderness Rectal exam: PRESENT: deferred Extremities exam: PRESENT: full ROM. ABSENT: calf tenderness, clubbing, pedal edema Neurological exam: PRESENT: alert, awake, oriented to person, oriented to place , oriented to time, oriented to situation, CN II-XII grossly intact. ABSENT: motor sensory deficit Psychiatric exam: PRESENT: appropriate affect, normal mood. ABSENT: homicidal ideation, suicidal ideation Skin exam: PRESENT: dry, intact, warm. ABSENT: cyanosis, rash Results Laboratory Results: 08/02/18 06:01 08/02/18 06:01 08/02/18 08/02/18 06:01 06:01 WBC 5.7 RBC 3.72 Hgb 10.0 L Hct 29.8 L MCV 80 MCH 26.9 L MCHC 33.6 RDW 16.7 H Plt Count 166 Seg Neutrophils % 75.4 Lymphocytes % 15.9 Monocytes % 6.3 Eosinophils % 1.9 Basophils % 0.5 Absolute Neutrophils 4.3 Absolute Lymphocytes 0.9 Absolute Monocytes 0.4 Absolute Eosinophils 0.1 Absolute Basophils 0.0 Sodium 140.2 Potassium 3.7 Chloride 109 H Carbon Dioxide 22 Anion Gap 9 BUN 8 Creatinine 0.90 Est GFR ( Amer) > 60 Est GFR (Non-Af Amer) > 60 Glucose 89 Calcium 9.1 Magnesium 1.8 Total Bilirubin 0.7 AST 38 H ALT 30 Alkaline Phosphatase 96 Total Protein 6.5 Albumin 3.6 Assessment & Plan - Diagnosis (1) Severe anemia Is this a current diagnosis for this admission?: Yes Plan: Likely a combination of GI bleed and 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 Iron panel is positive for iron deficiency anemia. Status post 2 PRBC and 1 dose of Injectafer. Currently on ferrous sulfate twice daily. H&H has been stable. Scheduled for endoscopy/colonoscopy today. Denies any melena, hematochezia, hematemesis, hemoptysis or any vaginal bleeding. H&H has been stable. CMP tomorrow. (2) Mechanical heart valve present Is this a current diagnosis for this admission?: Yes Plan: Mechanical heart valve placed due to complication of rheumatic heart disease in the s. Patient is on chronic Coumadin. INR admission was 3.5. Currently switch to heparin drip as she is planned for a upper GI endoscopy and colonoscopy. Will bridge back to Coumadin postprocedure with a with a goal INR of 2.5-3.5 (3) GERD (gastroesophageal reflux disease) Is this a current diagnosis for this admission?: Yes Plan: Continue PPIs. Patient is scheduled for upper GI endoscopy for bleeding. Hopefully she can be evaluated for complication of chronic GERD. (4) GI bleed Qualifiers: GI bleed type/associated pathology: unspecified gastrointestinal hemorrhage type Qualified Code(s): K92.2 - Gastrointestinal hemorrhage, unspecified Is this a current diagnosis for this admission?: Yes Plan: As problem #1 (5) Tobacco user Is this a current diagnosis for this admission?: Yes Plan: Advised and encouraged to quit smoking. (6) UTI (urinary tract infection) Is this a current diagnosis for this admission?: Yes Plan: Uncomplicated, likely due to E. coli. Continue Bactrim. Cultures negative. Patient is allergic to ,cephalosporins, macrolides, cephalosporins and penicillins.
[2018-08-02] MEDS ORDERED: MIDAZOLAM 2 MG/2 ML INJ ONE (08:31)
[2018-08-02] MEDS ORDERED: PROPOFOL INJ 200 MG/20 ML VIAL IV ONE (08:32)
[2018-08-02] MEDS ORDERED: NORMAL SALINE 1000 ML 1,000 ML IV PRN (09:37)
[2018-08-02] MEDS ORDERED: POLYETHYLENE GLYCOL 3350 POWDER 17 GM/1 PACKET PO SCH (10:00)
[2018-08-02] MEDS ORDERED: DIPHENHYDRAMINE HCL 50 MG/ML VIAL IV PRN (10:46)
[2018-08-02] MEDS ORDERED: MEPERIDINE HCL/PF INJ 25 MG/1 ML DISP.SYRIN IV PRN (10:46)
[2018-08-02] MEDS ORDERED: FENTANYL CITRATE INJ/PF 100 MCG/2 ML AMPUL IV PRN ×3 (10:46)
[2018-08-02] MEDS ORDERED: PROMETHAZINE HCL INJ 25 MG/1 ML VIAL IV PRN ×2 (10:46→14:00)
--- NOTE | 2018-08-02 11:27 | Operative Report ---
Operative Report DATE OF SURGERY: 08/02/18 PREOPERATIVE DIAGNOSIS: 1. Chronic blood loss anemia. 2. Pharmacologic anticoagulation. 3. Mechanical aortic and mitral valve replacement POSTOPERATIVE DIAGNOSIS: Same with mild distal esophagitis; multiple mid and upper rectal polyps OPERATION: 1. Esophagogastroduodenoscopy. 2. Total colonoscopy cecum. 3. Multiple mid and upper rectal hot snare polypectomies SURGEON: GINETTE SU ANESTHESIA: LMAC TISSUE REMOVED OR ALTERED: Multiple upper and mid rectal polyps COMPLICATIONS: None ESTIMATED BLOOD LOSS: Scant INTRAOPERATIVE FINDINGS: See below PROCEDURE: Patient was taken in the preop holding area the main operating room where LMAC anesthesia was induced. She is placed in a semirecumbent left lateral position. Oral mouthpiece inserted Surgical plan surgical timeout were conducted The flexible upper endoscope was advanced to the oropharynx, down through the upper esophageal sphincter to the esophagus through the stomach into the duodenum first and second portions. The patient tolerated procedure well. This was an excellent study. There was no evidence of retained gastric contents. The first and second portions of the duodenum were well. The scope was brought back to the pylorus carefully. No evidence of bleeding stricture polyp tumor or clot. Scope was retroflexed in the stomach and a good look at the GE junction showed only small hiatal hernia. No evidence of lesion in the gastric cardia Scope was straightened out and a good look at the GE junction from the esophageal side revealed mild esophagitis. No biopsies performed. No evidence of stricture or tumor or polyp. There was no evidence of esophageal varices. Scope was removed she tolerated the procedure well Instrumentation was set up for colonoscopy. A rectal exam was performed. There was no visible or palpable anorectal pathology other than internal hemorrhoids which were small and collapsed The flexible pediatric colonoscope was advanced to the anorectal canal all the way to the cecum. This was an excellent study and a well-prepped bowel. We visualize the appendiceal orifice and photos taken. The scope was withdrawn to light the colon check a mucosa carefully. No evidence of tumor stricture bleeding or clot. There is no diverticulosis. In the mid to upper rectum from approximately 10-21 cm in the anal verge were multiple small loculated sessile polyps the majority of which were removed total of approximately 7 with a hot snare device on medium heat strength. The specimens were retained in a single container and sent his upper and mid rectal polyps. Bleeding from the polypectomy sites was nil. Photos are taken. Scope was withdrawn to the patient's anus. She tolerated procedure well. She is taken recovery in stable condition.
[2018-08-02] MEDS: PANTOPRAZOLE SODIUM 40 MG VIAL IV SCH ×2 (12:37→21:31)
[2018-08-02] MEDS: FENOFIBRATE NANOCRYSTALLIZED 145 MG TABLET PO SCH (12:37)
[2018-08-02] MEDS: FERROUS SULFATE 325 MG TABLET PO SCH (12:37)
[2018-08-02] MEDS: SULFAMETHOXAZOLE/TRIMETHOPRIM 800-160 MG TABLET PO SCH ×2 (12:37→21:31)
[2018-08-02 13:48] LABS: APPEARANCE,URINE CLEAR; BILIRUBIN,URINE NEGATIVE (NEGATIVE); COLOR,URINE STRAW; GLUCOSE, URINE NEGATIVE (NEGATIVE); KETONES,URINE 25 mg/dL (NEGATIVE); LEUKOCYTE ESTERASE,URINE SMALL (NEGATIVE); NITRITE,URINE NEGATIVE (NEGATIVE); PROTEIN,URINE NEGATIVE (NEGATIVE); UROBILINOGEN,URINE NEGATIVE mg/dL (<2.0)
[2018-08-02 13:53] LABS: URINE SPECIFIC GRAVITY 1.011
[2018-08-02] MEDS ORDERED: WARFARIN SODIUM 7.5 MG TABLET PO ONE (19:00)
[2018-08-02] MEDS: SIMVASTATIN 40 MG TABLET PO SCH (21:31)
[2018-08-03 04:43] LABS: ABSOLUTE EOSINOPHILS # (AUTO) 0.1 10^3/uL (0.0-0.6); ABSOLUTE LYMPHOCYTES (AUTO) 0.6 10^3/uL (0.5-4.7); ABSOLUTE MONOCYTES (AUTO) 0.4 10^3/uL (0.1-1.4); ABSOLUTE NEUT (AUTO) 4.3 10^3/uL (1.7-8.2); BASOPHILS % (AUTO) 0.5 % (0-2); EOSINOPHILS % (AUTO) 2.2 % (0-6); HEMATOCRIT 28.6 % (36.0-47.0); HEMOGLOBIN 9.6 g/dL (12.0-15.5); LYMPHOCYTES % (AUTO) 11.3 % (13-45); MEAN CORPUSCULAR HGB CONC 33.5 g/dL (32.0-36.0); MEAN CORPUSCULAR VOLUME 81 fl (80-97); MONOCYTES % (AUTO) 7.2 % (3-13); PLATELET COUNT 152 10^3/uL (150-450); RED BLOOD COUNT 3.54 10^6/uL (3.72-5.28); RED CELL DISTRIBUTION WIDTH 16.4 % (11.5-14.0); SEGMENTED NEUTROPHILS % (AUTO) 78.8 % (42-78); TOTAL CELLS COUNTED % (AUTO) 100 %; WHITE BLOOD COUNT 5.4 10^3/uL (4.0-10.5)
[2018-08-03 04:48] LABS: PROTHROMBIN TIME 14.7 SEC (11.4-15.4)
[2018-08-03 05:01] LABS: ALANINE AMINOTRANSFERASE 36 U/L (9-52); ALBUMIN 3.4 g/dL (3.5-5.0); ALKALINE PHOSPHATASE 81 U/L (38-126); ANION GAP 8 (5-19); ASPARTATE AMINO TRANSFERASE 38 U/L (14-36); BILIRUBIN,DIRECT 0.4 mg/dL (0.0-0.4); BILIRUBIN,TOTAL 0.6 mg/dL (0.2-1.3); BLOOD UREA NITROGEN 10 mg/dL (7-20); CALCIUM 8.8 mg/dL (8.4-10.2); CARBON DIOXIDE 22 mmol/L (22-30); CHLORIDE 109 mmol/L (98-107); GLUCOSE 92 mg/dL (75-110); POTASSIUM 3.7 mmol/L (3.6-5.0); SODIUM 138.5 mmol/L (137-145); TOTAL PROTEIN 6.1 g/dL (6.3-8.2)
[2018-08-03] MEDS: SULFAMETHOXAZOLE/TRIMETHOPRIM 800-160 MG TABLET PO SCH (09:50)
[2018-08-03] MEDS: FERROUS SULFATE 325 MG TABLET PO SCH (09:50)
[2018-08-03] MEDS: FENOFIBRATE NANOCRYSTALLIZED 145 MG TABLET PO SCH (09:50)
--- NOTE | 2018-08-03 14:47 | PDOC DISCHARGE SUMMARY ---
General - Admit/Disc Date/PCP Admission Date/Primary Care Provider: 07/30/18 23:57 ANSHU STEPHENS-Cuong Discharge Date: 08/03/18 - Discharge Diagnosis (1) Anemia Is this a current diagnosis for this admission?: Yes (2) Mechanical heart valve present Is this a current diagnosis for this admission?: Yes - Additional Information Resuscitation Status: Full Code Prescriptions: Enoxaparin Sodium [Lovenox Inj 100 mg/1 ml Disp.syrin] 50 mg SUBCUT Q12 #6 disp.syrin Ferrous Sulfate [Feosol 325 mg Tablet] 325 mg PO DAILY #60 tablet Sulfamethoxazole/Trimethoprim [Septra-Ds 800-160 mg Tablet] 1 tab PO Q12 #8 tablet Home Medications: Omeprazole 20 mg PO BID 07/31/18 Vit/Dha [ Multi + Dha Capsule] 1 cap PO DAILY 07/31/18 Warfarin Sodium [Coumadin 2.5 mg Tablet] 7.5 mg PO MOWEFR@1000 07/31/18 Enoxaparin Sodium [Lovenox Inj 100 mg/1 ml Disp.syrin] 50 mg SUBCUT Q12 #6 disp.syrin 08/03/18 Ferrous Sulfate [Feosol 325 mg Tablet] 325 mg PO DAILY #60 tablet 08/03/18 Sulfamethoxazole/Trimethoprim [Septra-Ds 800-160 mg Tablet] 1 tab PO Q12 #8 tablet 08/03/18 History of Present Illness History of Present Illness: CORDELIA DAVID is a 63 year old female who comes to the emergency department sent by her primary care provider after routine labs were done and patient was found to have severe anemia. In the emergency department hemoglobin was 6.9. Patient has a mechanical valve and is on Coumadin, her INR is 3.5. Patient denies having any hematemesis, hematochezia, maroon stools or melena. Denies dizziness, lightheadedness, chest tightness, palpitations, patient has COPD and tells me that he has chronic shortness of breath and wheezing that has not changed. Hospital Course Hospital Course: Patient was admitted for blood transfusion and anemia work-up. She received 2 u of pRBCs. Her hemoglobin came up to 9.6 and remained stable. EGD was unremarkable aside from very mild gastritis and colonoscopy was negative for any source of bleeding but did show 7 colonic polyps which were removed. Her anemia can be a combination of iron deficiency and possible hemolysis from her mechanical valves as her reticulocyte count was mildly elevated. She was started on iron supplements. Her coumadin was interrupted due to the mentioned procedures. She was then bridged back to coumadin with lovenox. Her INR was subtherapeutic. She has a mechanical aortic and mitral valve. INR goal is 2.5- 3.5. She will be discharged home on coumadin with lovenox bridging. Discussed the risks and benefits of anticoagulation again and patient verbalize understanding that is important that she be bridged due to her mechanical valves. Patient will also be continued on Bactrim at home for her UTI. Physical Exam Vital Signs: Temp Pulse Resp BP Pulse Ox 98.4 F 75 16 133/58 H 99 08/03/18 11:27 08/03/18 11:27 08/03/18 11:27 08/03/18 11:27 08/03/18 11:27 Intake & Output 08/02/18 08/03/18 08/04/18 06:59 06:59 06:59 Intake Total 1587 1520 Output Total 554 0 Balance 1033 1520 Weight 112 lb 14.027 oz 113 lb 5.082 oz General appearance: PRESENT: no acute distress, well-developed, well-nourished Head exam: PRESENT: atraumatic, normocephalic Eye exam: PRESENT: conjunctiva pink, EOMI, PERRLA. ABSENT: scleral icterus Ear exam: PRESENT: normal external ear exam Mouth exam: PRESENT: moist, tongue midline Neck exam: ABSENT: carotid bruit, JVD, lymphadenopathy, thyromegaly Respiratory exam: PRESENT: clear to auscultation marty. ABSENT: rales, rhonchi, wheezes Cardiovascular exam: PRESENT: clicks, RRR, systolic murmur - mechanical valvular clicks. ABSENT: diastolic murmur, rubs Pulses: PRESENT: normal dorsalis pedis pul GI/Abdominal exam: PRESENT: normal bowel sounds, soft. ABSENT: distended, guarding, mass, organolmegaly, rebound, tenderness Rectal exam: PRESENT: deferred Neurological exam: PRESENT: alert, awake, oriented to person, oriented to place , oriented to time, oriented to situation, CN II-XII grossly intact. ABSENT: motor sensory deficit Results Laboratory Results: 08/03/18 04:07 08/03/18 04:07 08/02/18 08/03/18 08/03/18 12:45 04:07 04:07 WBC 5.4 RBC 3.54 L Hgb 9.6 L Hct 28.6 L MCV 81 MCH 27.0 MCHC 33.5 RDW 16.4 H Plt Count 152 Seg Neutrophils % 78.8 H Lymphocytes % 11.3 L Monocytes % 7.2 Eosinophils % 2.2 Basophils % 0.5 Absolute Neutrophils 4.3 Absolute Lymphocytes 0.6 Absolute Monocytes 0.4 Absolute Eosinophils 0.1 Absolute Basophils 0.0 Sodium 138.5 Potassium 3.7 Chloride 109 H Carbon Dioxide 22 Anion Gap 8 BUN 10 Creatinine 0.95 Est GFR ( Amer) > 60 Est GFR (Non-Af Amer) > 60 Glucose 92 Calcium 8.8 Total Bilirubin 0.6 AST 38 H ALT 36 Alkaline Phosphatase 81 Total Protein 6.1 L Albumin 3.4 L Urine Color STRAW Urine Appearance CLEAR Urine pH 6.0 Ur Specific [place] 1.011 Urine Protein NEGATIVE Urine Glucose (UA) NEGATIVE Urine Ketones 25 H Urine Blood NEGATIVE Urine Nitrite NEGATIVE Ur Leukocyte Esterase SMALL H Urine WBC (Auto) 2 Urine RBC (Auto) 3 Qualifiers - * PATIENT BEING DISCHARGED WITH ANY OF THE FOLLOWING DIAGNOSIS: No
[2018-08-03 14:52] VITALS: BP 125/63
== END 2018-08-03 15:23 | disposition home health service (06) | DRG 812 ==
LOC: ER 19:12 → EH 23:57 → 5 07-31 01:40
PROVIDERS: ADMIT Internal Medicine; ATTEND Internal Medicine
PROC: 30233N1 Transfusion of Nonautologous Red Blood Cells into Peripheral Vein, Percutaneous Approach (ICD-10-PCS; principal; 2018-07-31)
PROC: 0DJ08ZZ Inspection of Upper Intestinal Tract, Via Natural or Artificial Opening Endoscopic (ICD-10-PCS; 2018-08-02 10:15)
PROC: 0DBP8ZX Excision of Rectum, Via Natural or Artificial Opening Endoscopic, Diagnostic (ICD-10-PCS; 2018-08-02 10:15)
DX: D50.9 Iron deficiency anemia, unspecified (principal); N39.0 Urinary tract infection, site not specified; J44.9 Chronic obstructive pulmonary disease, unspecified; K62.1 Rectal polyp; K64.8 Other hemorrhoids; B96.20 Unspecified Escherichia coli [E. coli] as the cause of diseases classified elsewhere; D64.89 Other specified anemias; I10 Essential (primary) hypertension; E78.5 Hyperlipidemia, unspecified; F17.210 Nicotine dependence, cigarettes, uncomplicated; R19.5 Other fecal abnormalities; K29.70 Gastritis, unspecified, without bleeding; I09.9 Rheumatic heart disease, unspecified; K21.9 Gastro-esophageal reflux disease without esophagitis; Z79.01 Long term (current) use of anticoagulants; Z95.2 Presence of prosthetic heart valve; Z88.1 Allergy status to other antibiotic agents; Z88.0 Allergy status to penicillin; Z88.6 Allergy status to analgesic agent; Z90.49 Acquired absence of other specified parts of digestive tract; Z90.710 Acquired absence of both cervix and uterus; Z82.49 Family history of ischemic heart disease and other diseases of the circulatory system; Z79.899 Other long term (current) drug therapy
CPT/HCPCS: 36415; 36430; 43235; 45380; 45385; 80053; 81001; 813; 82272; 82607; 82652; 82728; 82746; 83540; 83550; 83735; 84443; 85025; 85027; 85045; 85610; 85730; 86850; 86900; 86901; 86920; 88305; 94640; 99284; J1439; J1644; J2250; J2704; J3490; J7050; J7620; P9016; S0164

== ENCOUNTER → 2018-08-04 | Outpatient (CLI) | payer MEDICAID ==
[2018-08-04 15:47] LABS: ABSOLUTE EOSINOPHILS # (AUTO) 0.1 10^3/uL (0.0-0.6); ABSOLUTE LYMPHOCYTES (AUTO) 0.7 10^3/uL (0.5-4.7); ABSOLUTE MONOCYTES (AUTO) 0.4 10^3/uL (0.1-1.4); ABSOLUTE NEUT (AUTO) 3.2 10^3/uL (1.7-8.2); BASOPHILS % (AUTO) 0.6 % (0-2); EOSINOPHILS % (AUTO) 1.9 % (0-6); HEMATOCRIT 29.7 % (36.0-47.0); HEMOGLOBIN 9.8 g/dL (12.0-15.5); LYMPHOCYTES % (AUTO) 16.5 % (13-45); MEAN CORPUSCULAR HEMOGLOBIN 27.1 pg (27.0-33.4); MEAN CORPUSCULAR HGB CONC 33.1 g/dL (32.0-36.0); MEAN CORPUSCULAR VOLUME 82 fl (80-97); PLATELET COUNT 175 10^3/uL (150-450); RED BLOOD COUNT 3.63 10^6/uL (3.72-5.28); RED CELL DISTRIBUTION WIDTH 16.8 % (11.5-14.0); TOTAL CELLS COUNTED % (AUTO) 100 %; WHITE BLOOD COUNT 4.4 10^3/uL (4.0-10.5)
[2018-08-04 15:52] LABS: INTERNATIONAL RATION (INR) 1.45; PROTHROMBIN TIME 18.4 SEC (11.4-15.4)
[2018-08-04 16:09] LABS: ALANINE AMINOTRANSFERASE 61 U/L (9-52); ALBUMIN 3.9 g/dL (3.5-5.0); ALKALINE PHOSPHATASE 82 U/L (38-126); ANION GAP 10 (5-19); ASPARTATE AMINO TRANSFERASE 99 U/L (14-36); BILIRUBIN,DIRECT 0.1 mg/dL (0.0-0.4); BILIRUBIN,TOTAL 0.3 mg/dL (0.2-1.3); BLOOD UREA NITROGEN 17 mg/dL (7-20); CALCIUM 9.1 mg/dL (8.4-10.2); CARBON DIOXIDE 23 mmol/L (22-30); CHLORIDE 108 mmol/L (98-107); GLUCOSE 94 mg/dL (75-110); POTASSIUM 4.3 mmol/L (3.6-5.0); SODIUM 141.4 mmol/L (137-145); TOTAL PROTEIN 6.8 g/dL (6.3-8.2)
== END ==
LOC: OD 14:40
PROVIDERS: ATTEND Nurse Practitioner Family
DX: D64.9 Anemia, unspecified (principal); N30.00 Acute cystitis without hematuria; Z51.81 Encounter for therapeutic drug level monitoring; Z79.01 Long term (current) use of anticoagulants; Z87.19 Personal history of other diseases of the digestive system
CPT/HCPCS: 36415; 80053; 85025; 85610

== ENCOUNTER → 2018-11-04 | Outpatient (CLI) | payer MEDICAID ==
[2018-11-04 12:58] LABS: ABSOLUTE EOSINOPHILS # (AUTO) 0.1 10^3/uL (0.0-0.6); ABSOLUTE LYMPHOCYTES (AUTO) 1.5 10^3/uL (0.5-4.7); ABSOLUTE MONOCYTES (AUTO) 0.4 10^3/uL (0.1-1.4); ABSOLUTE NEUT (AUTO) 4.7 10^3/uL (1.7-8.2); BASOPHILS % (AUTO) 0.4 % (0-2); EOSINOPHILS % (AUTO) 1.2 % (0-6); HEMATOCRIT 35.8 % (36.0-47.0); LYMPHOCYTES % (AUTO) 21.8 % (13-45); MEAN CORPUSCULAR HEMOGLOBIN 29.5 pg (27.0-33.4); MEAN CORPUSCULAR HGB CONC 33.5 g/dL (32.0-36.0); MEAN CORPUSCULAR VOLUME 88 fl (80-97); MONOCYTES % (AUTO) 5.5 % (3-13); PLATELET COUNT 150 10^3/uL (150-450); RED BLOOD COUNT 4.07 10^6/uL (3.72-5.28); RED CELL DISTRIBUTION WIDTH 16.1 % (11.5-14.0); SEGMENTED NEUTROPHILS % (AUTO) 71.1 % (42-78); TOTAL CELLS COUNTED % (AUTO) 100 %; WHITE BLOOD COUNT 6.7 10^3/uL (4.0-10.5)
[2018-11-04 13:09] LABS: BLOOD UREA NITROGEN 13 mg/dL (7-20)
[2018-11-04 13:20] LABS: ANION GAP 7 (5-19); CALCIUM 9.4 mg/dL (8.4-10.2); CARBON DIOXIDE 28 mmol/L (22-30); CHLORIDE 106 mmol/L (98-107); GLUCOSE 109 mg/dL (75-110); POTASSIUM 4.3 mmol/L (3.6-5.0); SODIUM 140.5 mmol/L (137-145)
== END ==
LOC: OD 11:24
PROVIDERS: ATTEND Specialist
DX: E78.5 Hyperlipidemia, unspecified (principal); Z79.899 Other long term (current) drug therapy
CPT/HCPCS: 36415; 80048; 83735; 85025

== ENCOUNTER 2018-11-08 09:25 | Day surgery (SDC) | payer MEDICAID ==
[~2018-11-08 09:25] MED LIST: PROPOFOL INJ 200 MG/20 ML VIAL IV ONE
[2018-11-08 11:00] VITALS: BP 121/78
--- NOTE | 2018-11-08 12:11 | Operative Report ---
Operative Report DATE OF SURGERY: 11/08/18 Operative Report: The risks benefits and alternatives of the procedure explained to the patient in detail and informed consent is obtained.A GIF Olympus video scope was inserted into the patient's mouth and hypopharynx, the esophagus is identified intubated and insufflated, the scope was then advanced through the esophagus stomach and duodenum, retroflexion maneuver is done, the esophagus stomach and first and second portions of the duodenum examined PREOPERATIVE DIAGNOSIS: Blood in stool rule out upper GI source of bleeding. Patient has stated in the office when she was initially scheduled that she would not want to be stopping her anticoagulation POSTOPERATIVE DIAGNOSIS: Normal upper EGD OPERATION: Diagnostic EGD SURGEON: BRETT SAMUEL ANESTHESIA: LMAC TISSUE REMOVED OR ALTERED: None. COMPLICATIONS: None. ESTIMATED BLOOD LOSS: None. INTRAOPERATIVE FINDINGS: As noted above. PROCEDURE: Patient tolerated the procedure well. No immediate postprocedure complications are noted. Patient discharged in good condition. Discharge date 11/08/2018. Discharge diet: Regular. Discharge activity: Regular. 2-3-week follow-up to discuss findings. Patient is instructed to call the office or proceed to the emergency room should there be any further problems or questions.
== END 2018-11-08 11:06 | disposition home or self-care (01) ==
LOC: END 09:25
PROVIDERS: ATTEND Internal Medicine Gastroenterology
DX: R10.13 Epigastric pain (principal); D50.0 Iron deficiency anemia secondary to blood loss (chronic); K92.1 Melena; Z86.010 Personal history of colon polyps; K21.9 Gastro-esophageal reflux disease without esophagitis; F17.210 Nicotine dependence, cigarettes, uncomplicated; J44.9 Chronic obstructive pulmonary disease, unspecified; M19.90 Unspecified osteoarthritis, unspecified site; G89.4 Chronic pain syndrome; E78.5 Hyperlipidemia, unspecified; I10 Essential (primary) hypertension; Z79.01 Long term (current) use of anticoagulants; Z95.2 Presence of prosthetic heart valve; Z79.51 Long term (current) use of inhaled steroids
CPT/HCPCS: 43235; J2704; 731

== ENCOUNTER → 2018-11-23 | Outpatient (CLI) | payer MEDICAID ==
--- NOTE | 2018-11-23 14:36 | RADIOLOGY REPORT (SQ) ---
EXAM DESCRIPTION: SHOULDER LEFT 2 OR MORE VIEWS COMPLETED DATE/TIME: 11/23/2018 2:23 pm REASON FOR STUDY: PAIN IN LEFT SHOULDER M25.552 PAIN IN LEFT HIP M25.512 PAIN IN LEFT SHOULDER COMPARISON: None. NUMBER OF VIEWS: Three views. TECHNIQUE: Internal rotation, external rotation, and Y view images acquired of the left shoulder. LIMITATIONS: None. FINDINGS: MINERALIZATION: Normal. BONES: No acute fracture or dislocation. No worrisome bone lesions. JOINTS: Mild acromioclavicular arthrosis. Loss of the acromial humeral distance may be on the basis of underlying rotator cuff pathology versus patient positioning. VISUALIZED LUNGS AND RIBS: No pneumothorax. No rib fracture. SOFT TISSUES: No radiopaque foreign body. OTHER: Partially visualized anterior median sternotomy. IMPRESSION: 1. No acute osseous findings. 2. Mild acromioclavicular arthrosis. TECHNICAL DOCUMENTATION: JOB ID: [id number] [employer]- All Rights Reserved Reading location - IP/workstation name: [email or web address]
--- NOTE | 2018-11-23 14:40 | RADIOLOGY REPORT (SQ) ---
EXAM DESCRIPTION: HIP LEFT AP/LATERAL COMPLETED DATE/TIME: 11/23/2018 2:23 pm REASON FOR STUDY: LT HIP PAIN M25.552 PAIN IN LEFT HIP M25.512 PAIN IN LEFT SHOULDER COMPARISON: None. NUMBER OF VIEWS: Two views. TECHNIQUE: AP pelvis and additional frog-leg view of the left hip. LIMITATIONS: None. FINDINGS: MINERALIZATION: Normal. LEFT HIP: No fracture or dislocation. No worrisome bone lesions. RIGHT HIP: No fracture or dislocation. No worrisome bone lesions. PUBIS AND ISCHIUM: No fracture. PELVIS: A fairly well defined lucent 2.3 cm area overlies the medial aspect of the mid-distal left i liac bone. This finding may be on the basis of bowel gas, with other etiologies not entirely exclude d. No fracture. SACRUM: No fracture or dislocation. No worrisome bone lesions. LOWER LUMBAR SPINE: No fracture or dislocation. No worrisome bone lesions. No significant disc disea se. SOFT TISSUES: No findings. OTHER: No other significant finding. IMPRESSION: 1. No acute osseous findings. 2. A fairly well-defined lucent area overlies the medial aspect of the mid-distal left iliac bone. Considerations for this finding includes bowel gas, with other etiologies not entirely excluded. A s hort-term follow up AP pelvis examination 5- 7 days is suggested. TECHNICAL DOCUMENTATION: JOB ID: [id number] [employer]- All Rights Reserved Reading location - IP/workstation name: [email or web address]
== END ==
LOC: OD 13:53
PROVIDERS: ATTEND Nurse Practitioner Family
DX: M25.552 Pain in left hip (principal); M25.512 Pain in left shoulder; M19.012 Primary osteoarthritis, left shoulder

== ENCOUNTER 2019-07-29 05:42 | Emergency (ER) | payer MEDICAID ==
--- NOTE | 2019-07-29 06:02 | ER Document Report ---
ED General - General Chief Complaint: Rectal Bleeding Stated Complaint: RECTAL BLEEDING Time Seen by Provider: 07/29/19 06:01 Primary Care Provider: JOÃO GRIFFIN FNP-C [Primary Care Provider] - Follow up as needed TRAVEL OUTSIDE OF THE [place] IN LAST 30 DAYS: No - HPI Patient complains to provider of: blood in stool Notes: 64 y/o presenting to ED for evaluation of blood in stool x3 days but significantly worse this am with at least 8 BM's with bright red blood and black stool. denies a h/o liver disease, etoh abuse she is on coumadin due to a h/o mechanical heart valve she feels weak and fatigued she is dizzy when she stands up she is unsure of what her last INR and CBC results were but states they were checked within the last 1-2 days no fever or chills she has some lower abdominal cramping she denies a h/o similar presentations. - Related Data Allergies/Adverse Reactions: No Known Allergies Allergy (Verified 11/10/18 15:04) Past Medical History - Social History Smoking Status: Current Every Day Smoker Family History: None Patient has suicidal ideation: No Patient has homicidal ideation: No - Past Medical History Cardiac Medical History: Reports: Hx Coronary Artery Disease, Hx Hypercholesterolemia Denies: Hx Heart Attack, Hx Hypertension Pulmonary Medical History: Reports: Hx COPD, Hx Pneumonia - HX COLLAPSED LUNG Denies: Hx Asthma, Hx Bronchitis Neurological Medical History: Denies: Hx Cerebrovascular Accident, Hx Seizures Renal/ Medical History: Denies: Hx Peritoneal Dialysis GI Medical History: Reports: Hx Gastroesophageal Reflux Disease Musculoskeletal Medical History: Reports Hx Arthritis Psychiatric Medical History: Reports: Hx Anxiety Past Surgical History: Reports: Hx Cardiac Surgery - mitrial valve replacement, Hx Cholecystectomy, Hx Hysterectomy, Hx Tonsillectomy, Hx Valve Replacement - Mechanical valve placement - Immunizations Hx Diphtheria, Pertussis, Tetanus Vaccination: Yes Review of Systems - Review of Systems Constitutional: Weakness. denies: Chills, Fever EENT: No symptoms reported Cardiovascular: Dizziness, Lightheaded. denies: Chest pain, Palpitations Respiratory: No symptoms reported Gastrointestinal: Abdominal pain, Nausea, Black stools, Rectal bleeding. denies: Diarrhea, Vomiting Genitourinary: No symptoms reported Female Genitourinary: No symptoms reported Musculoskeletal: No symptoms reported Skin: No symptoms reported Hematologic/Lymphatic: No symptoms reported Neurological/Psychological: No symptoms reported Physical Exam - Vital signs Vitals: Pulse Resp BP Pulse Ox 77 14 95/53 L 99 07/29/19 05:51 07/29/19 05:51 07/29/19 05:51 07/29/19 05:51 Interpretation: Normal - General General appearance: Alert, Anxious - HEENT Head: Normocephalic, Atraumatic Eyes: Normal Pupils: PERRL Mucous membranes: Dry - Respiratory Respiratory status: No respiratory distress Chest status: Nontender Breath sounds: Normal Chest palpation: Normal - Cardiovascular Rhythm: Regular Heart sounds: Normal auscultation Murmur: No - Abdominal Inspection: Normal Distension: No distension Bowel sounds: Normal Tenderness: Tender - LLQ without guarding or rebound Organomegaly: No organomegaly - Back Back: Normal, Nontender - Extremities General upper extremity: Normal inspection, Nontender, Normal color, Normal ROM, Normal temperature General lower extremity: Normal inspection, Nontender, Normal color, Normal ROM, Normal temperature, Normal weight bearing. No: Le's sign - Neurological Neuro grossly intact: Yes Cognition: Normal Orientation: AAOx4 [place] Coma Scale Eye Opening: Spontaneous [place] Coma Scale Verbal: Oriented [place] Coma Scale Motor: Obeys Commands [place] Coma Scale Total: 15 Speech: Normal Motor strength normal: LUE, RUE, LLE, RLE Sensory: Normal - Psychological Associated symptoms: Normal affect, Normal mood - Skin Skin Temperature: Warm Skin Moisture: Dry Skin Color: Pale Course - Re-evaluation Re-evalutation: 07/29/19 06:11 patient on coumadin with blood per rectum check labs to include cbc/pt/inr and obtain CT type and screen ordered anticipating possible need for transfusion given dizziness/palpitations 07/29/19 06:49 last hemoglobin 12 earlier in the year. ordered 2 units of PRBC's given hemoglobin of 8 today. 07/29/19 08:[address] Jurado who recommends transfer given anticoagulated state, drop in hemoglobin and concern for worsening in context of absence of advanced cardiac support and advanced GI support 07/29/19 09:19 07/29/19 09:20 discussed with Andrews Moncada (Dr Larson) who accepts but currently is on diversion 07/29/19 09:24 accepting MD at [facility] is Dr Pichardo 07/29/19 10:07 accepted at [facility] by Huseyin Ignacio MD with hospitalist - Vital Signs Vital signs: Temp Pulse Resp BP Pulse Ox 97.6 F 92 14 118/78 100 07/29/19 10:10 07/29/19 10:10 07/29/19 10:10 07/29/19 10:00 07/29/19 10:10 - Laboratory Result Diagrams: 07/29/19 06:00 07/29/19 06:15 Laboratory results interpreted by me: 07/29/19 07/29/19 07/29/19 06:00 06:15 06:15 WBC 11.4 H RBC 2.65 L Hgb 8.0 L Hct 24.4 L RDW 15.0 H Lymph % (Auto) 9.0 L Absolute Neuts (auto) 9.7 H Seg Neutrophils % 84.7 H PT APTT BUN 27 H Glucose 148 H Total Bilirubin < 0.1 L Ur Leukocyte Esterase Crossmatch See Detail 07/29/19 07/29/19 06:15 07:52 WBC RBC Hgb Hct RDW Lymph % (Auto) Absolute Neuts (auto) Seg Neutrophils % PT 33.5 H APTT 42.9 H BUN Glucose Total Bilirubin Ur Leukocyte Esterase TRACE H Crossmatch - Diagnostic Test Radiology reviewed: Reports reviewed - CT abd/pelvis - EKG Interpretation by Me Additional EKG results interpreted by me: 07/29/19 06:12 NSR rate of 95. nonspecific T wave changes read by machine that appear artifactually generated due to baseline wandering no ST segment changes Critical Care Note - Critical Care Note Total time excluding time spent on procedures (mins): 40 Comments: hypotensive with GI bleed anticoagulated on coumadin at risk for cardiovascular decompensation and if not aggressively treated w/ blood products upon arrival Discharge - Discharge Clinical Impression: Mechanical heart valve present, Anticoagulant long-term use GI bleed Qualifiers: GI bleed type/associated pathology: unspecified gastrointestinal hemorrhage type Qualified Code(s): K92.2 - Gastrointestinal hemorrhage, unspecified Disposition: [facility] Referrals: JOÃO GRIFFIN FNP-C [Primary Care Provider] - Follow up as needed
[2019-07-29] MEDS ORDERED: NORMAL SALINE 1000 ML 1,000 ML IV ONE (06:07)
[2019-07-29 06:32] LABS: ABSOLUTE BASOPHILS # (AUTO) 0.1 10^3/uL (0.0-0.2); ABSOLUTE EOSINOPHILS # (AUTO) 0.2 10^3/uL (0.0-0.6); ABSOLUTE MONOCYTES (AUTO) 0.4 10^3/uL (0.1-1.4); ABSOLUTE NEUT (AUTO) 9.7 10^3/uL (1.7-8.2); BASOPHILS % (AUTO) 0.5 % (0-2); HEMATOCRIT 24.4 % (36.0-47.0); MEAN CORPUSCULAR HEMOGLOBIN 30.2 pg (27.0-33.4); MEAN CORPUSCULAR HGB CONC 32.9 g/dL (32.0-36.0); MEAN CORPUSCULAR VOLUME 92 fl (80-97); MONOCYTES % (AUTO) 3.8 % (3-13); PLATELET COUNT 195 10^3/uL (150-450); RED BLOOD COUNT 2.65 10^6/uL (3.72-5.28); SEGMENTED NEUTROPHILS % (AUTO) 84.7 % (42-78); TOTAL CELLS COUNTED % (AUTO) 100 %; WHITE BLOOD COUNT 11.4 10^3/uL (4.0-10.5)
[2019-07-29 06:39] LABS: INTERNATIONAL RATION (INR) 3.21; PROTHROMBIN TIME 33.5 SEC (11.4-15.4)
[2019-07-29 06:40] LABS: PARTIAL THROMBOPLASTIN TIME 42.9 SEC (23.5-35.8)
[2019-07-29] MEDS ORDERED: ACETAMINOPHEN 325 MG TABLET PO PRN (06:45)
[2019-07-29] MEDS ORDERED: NORMAL SALINE 250 ML IV PRN ×2 (06:45)
[2019-07-29 06:48] LABS: ALBUMIN 3.7 g/dL (3.5-5.0); ALKALINE PHOSPHATASE 69 U/L (38-126); ANION GAP 8 (5-19); ASPARTATE AMINO TRANSFERASE 24 U/L (14-36); BLOOD UREA NITROGEN 27 mg/dL (7-20); CALCIUM 8.9 mg/dL (8.4-10.2); CARBON DIOXIDE 25 mmol/L (22-30); CHLORIDE 107 mmol/L (98-107); GLUCOSE 148 mg/dL (75-110); POTASSIUM 4.1 mmol/L (3.6-5.0); TOTAL PROTEIN 6.3 g/dL (6.3-8.2)
[2019-07-29 06:50] LABS: BILIRUBIN,TOTAL < 0.1 mg/dL (0.2-1.3)
[2019-07-29 08:08] LABS: APPEARANCE,URINE CLEAR; BILIRUBIN,URINE NEGATIVE (NEGATIVE); COLOR,URINE YELLOW; GLUCOSE, URINE NEGATIVE (NEGATIVE); KETONES,URINE NEGATIVE (NEGATIVE); LEUKOCYTE ESTERASE,URINE TRACE (NEGATIVE); NITRITE,URINE NEGATIVE (NEGATIVE); PROTEIN,URINE NEGATIVE (NEGATIVE); URINE SPECIFIC GRAVITY 1.029; UROBILINOGEN,URINE NEGATIVE mg/dL (<2.0)
--- NOTE | 2019-07-29 08:15 | RADIOLOGY REPORT (SQ) ---
EXAM: CT abdomen and pelvis with IV contrast CLINICAL DATA: 64-year-old female with abdominal pain and rectal bleeding TECHNICAL DATA: Axial CT imaging of the abdomen and pelvis was performed following the administration of intravenous contrast.. Sagittal and coronal reconstructed images were then performed. The CT study is performed according to ALARA (as low as reasonably achievable) or ALARA/IMAGE GENTLY, with automatic adjustment of mA and/or kV according to patient size. Performed on: 07/29/2019 at 7:16 AM. Comparison: None FINDINGS: Lung bases: The lung bases are grossly clear. There is minimal right basilar atelectasis. Liver:The liver is normal in size and configuration. No focal hepatic abnormalities are identified. Liver attenuation is within normal limits. Spleen:The spleen is normal is size, configuration and attenuation. There are a few punctate splenic granulomas. Gallbladder and bile duct: The gallbladder is surgically absent. There is no biliary ductal dilatation. Pancreas: The pancreas is grossly normal in size and configuration. Adrenal Glands:The adrenal glands are normal in size and configuration. Kidneys:The kidneys are normal in size and configuration. There is no evidence of hydronephrosis. There is no evidence of nephrolithiasis. There are a couple of small left renal cortical cysts. The largest cyst arises from the lower pole and measures approximately 1.8 x 1.7 x 2.2 cm. Stomach:The stomach is grossly normal. There is no definite hiatal hernia. Bowel:The bowel gas pattern is non specific and non obstructive. No definite abnormal blush of contrast is identified along the course of the bowel to suggest active bleeding. Appendix: The appendix is not well visualized on this examination. There is no CT evidence of acute appendicitis. Free air:There is no evidence of free air. Free fluid: There is no evidence of free fluid. Vasculature: There is mild dilatation of the infrarenal abdominal aorta which measures 2.4 x 2.6 cm in cross-sectional diameter (series 3, image 24). There are mild atherosclerotic calcifications along the abdominal aorta. The inferior vena cava is grossly unremarkable. Lymphadenopathy: No pathologic lymphadenopathy is identified. Bladder: The bladder is well distended and smooth in contour. Reproductive: The uterus is surgically absent. Bones: No acute osseous abnormalities are identified. There are mild degenerative changes of the lumbar spine. Soft tissues: No focal soft tissue abnormalities are identified. IMPRESSION: 1. No evidence of acute intra-abdominal or intrapelvic pathology. 2. Remote cholecystectomy and hysterectomy. 3. Small left renal cysts. 4. No definite abnormal blush of contrast identified along the course of the bowel to suggest active GI bleeding. 5. Dilatation of the infrarenal abdominal aorta which measures 2.4 x 2.6 cm in cross-sectional diameter. Recommend follow-up imaging every five years. 6. Evidence of prior granulomatous disease.
[2019-07-29] MEDS ORDERED: PANTOPRAZOLE SODIUM 40 MG VIAL IV PRN (08:46)
--- NOTE | 2019-07-29 13:39 | EKG REPORT ---
SEVERITY:- ABNORMAL ECG - SINUS RHYTHM NONSPECIFIC T ABNORMALITIES, ANT-LAT LEADS : Confirmed by: Lillian Corona MD 29-Jul-2019 13:38:05
[2019-07-29 14:19] VITALS: BP 125/78
== END 2019-07-29 14:44 | disposition short-term general hospital (02) ==
LOC: ER 05:42
DX: K92.2 Gastrointestinal hemorrhage, unspecified (principal); R53.1 Weakness; R53.83 Other fatigue; R42 Dizziness and giddiness; R10.30 Lower abdominal pain, unspecified; F17.200 Nicotine dependence, unspecified, uncomplicated; I25.10 Atherosclerotic heart disease of native coronary artery without angina pectoris; Z79.01 Long term (current) use of anticoagulants; Z95.2 Presence of prosthetic heart valve
CPT/HCPCS: 93005; 86900; 86901; 36415; 36430; 86850; 83690; 85025; 85610; 85730; 80053; 81001; 86920; 74177; 93010; P9016; S0164; J7030; 96361; 96365; 96366; 99291